=== PATIENT | female | born 1950 | race Caucasian/White ===

== ENCOUNTER → 2017-06-24 | Day surgery (SDC) | payer BC ==
--- NOTE | 2017-06-27 11:33 | OP ---
DATE OF OPERATION: 06/24/2017 PREOPERATIVE DIAGNOSIS: Right breast mass 11 o'clock to 12 o'clock 2 cm from the nipple and right breast mass 12 o'clock 2 cm from the nipple. POSTOPERATIVE DIAGNOSIS: Right breast mass 11 o'clock to 12 o'clock 2 cm from the nipple and right breast mass 12 o'clock 2 cm from the nipple. PROCEDURE: Right breast ultrasound-guided core biopsies with clip placement x2. ANESTHESIA: Local. ATTENDING SURGEON: Monae Bhatia MD ESTIMATED BLOOD LOSS: Minimal. COMPLICATIONS: None. DESCRIPTION OF PROCEDURE: The patient was made aware of the risks and benefits of the procedure and consented. She was placed in the supine position. Under sterile conditions with 1% lidocaine for local anesthesia, the right 11 o'clock to 12 o'clock mass 2 cm from the nipple was approached first. A small meghan was made in the skin. Using a 13-gauge suction biopsy, the biopsy was done with in inferolateral approach. Multiple cores were obtained under ultrasound guidance and submitted to Pathology. Likewise, under ultrasound guidance, a U-shaped clip was placed into the biopsy region. The 12 o'clock mass was then approached, again, under sterile conditions with 1% lidocaine for local anesthesia. The same meghan was used before was used, and a 13-gauge suction biopsy. The biopsy was placed in the proper position under ultrasound guidance. Multiple cores were obtained and then submitted to Pathology. Likewise, under ultrasound guidance, a bowtie clip was placed into the biopsy region well tolerated by patient. Steri-Strips and a sterile bandage was applied. We will contact her with the results. MONAE BHATIA M.D. [id number]
--- NOTE | 2017-06-28 11:24 | PATH ---
Surgical Pathology Report Patient Name: JUAN LEÓN [facility]. Rec. #: [id number] /Age/Gender: 1950 (Age: 66) / F Account: [id number] Location: [facility] RADIOLOGY U Taken: 06/24/2017 Received: 06/24/2017 Reported: 06/28/2017 Physicians: Tahmina Ann M.D. Specimen(s) Received A: RIGHT BREAST CORE BIOPSY 11:00 - 2CM FN B: RIGHT BREAST CORE BIOPSY 12:00, 2CM FN Clinical History Palpable mass Ultrasound findings: Highly suspicious/malignant Final Diagnosis A. BREAST, RIGHT, 11:00, 2 CMFN, CORE BIOPSY: INVASIVE DUCTAL CARCINOMA, MODERATELY DIFFERENTIATED, WITH ASSOCIATED MICROCALCIFICATIONS, MEASURING 0.9 CM IN THIS MATERIAL. B. BREAST, RIGHT, 12:00, 2 CMFN, CORE BIOPSY: INVASIVE DUCTAL CARCINOMA, WELL DIFFERENTIATED, MEASURING 0.8 CM IN THIS MATERIAL. DUCTAL CARCINOMA IN SITU (DCIS), INTERMEDIATE NUCLEAR GRADE, CRIBRIFORM TYPE. MICROCALCIFICATIONS PRESENT WITHIN IN SITU AND INVASIVE CARCINOMA. Comment: Breast prognostic markers are pending and will be reported as an addendum. Electronically Signed Shima Canut M.D. Addendum Reported: 06/30/2017 Addendum Diagnosis Part A, Breast, Right, 11:00: Results of Estrogen Receptor (ER) and Progesterone Receptor (ID) studies performed on block "1" at [facility] are as follows: ER (clone [id number] mouse monoclonal antibody by [employer]): 99% nuclear staining with strong intensity (Positive). ID (clone16 mouse monoclonal antibody by [employer]): 95% nuclear staining with strong intensity (Positive). Results of Her2 (IHC) & Ki-67 studies performed on block " " at [place], [place] ([id number]) are as follows: Her2 IHC (EP3 from [employer], formerly known as [id number], using Sutton Polymer Refine detection kit): 0 (Negative) Ki-67: ~10% (Low proliferative index) Part B, Breast, Right, 12:00 Results of Estrogen Receptor (ER) and Progesterone Receptor (ID) studies performed on block "1" at [facility] are as follows: ER (clone 6F11 mouse monoclonal antibody by [employer]): 99% nuclear staining with strong intensity (Positive). ID (clone16 mouse monoclonal antibody by [employer]): 95% nuclear staining with strong intensity (Positive). Results of Her2 (IHC) & Ki-67 studies performed on block " " at [place], [place] ([id number]) are as follows: Her2 IHC (EP3 from [employer], formerly known as [id number], using Sutton Polymer Refine detection kit): 0 (Negative) Ki-67: ~3% (Low proliferative index) Positive and negative controls (internal if applicable) show appropriate results. Formalin fixation time (approximately 75 hrs) exceeds current ASCO/CAP recommendations for ER, ID & Her2 testing (6-72 hrs). Negative results must be interpreted with caution as false negatives may occur. Cold ischemic time is within recommended guidelines. Shima Cantu M.D. Gross Description A. Received in formalin labeled "right breast biopsy 11:00, 2 cmfn," are 8 [place]-yellow, cylindrical portions of fibroadipose tissue ranging from 0.3-2.0 cm in length and averaging 0.1 cm diameter. The specimens are submitted in toto in one cassette. B. Received in formalin labeled "right breast biopsy 12:00, 2 cmfn," are 7 [place]-yellow, cylindrical portions of fibroadipose tissue ranging from 0.4-1.9 cm in length and averaging 0.1 cm in diameter. The specimens are submitted in toto in one cassette. Total formalin fixation time: Between 75-82 hours 06/27/201706/27/2017
== END | disposition home or self-care (01) ==
LOC: FRADUS-SUR 12:34
PROVIDERS: ATTEND Surgery Surgical Oncology
PROC: 0HBT3ZX Excision of Right Breast, Percutaneous Approach, Diagnostic (ICD-10-PCS; principal; 2017-06-24)
DX: C50.411 Malignant neoplasm of upper-outer quadrant of right female breast (principal); N63.11 Unspecified lump in the right breast, upper outer quadrant
CPT/HCPCS: 19083; 19084; 87899; A4648

== ENCOUNTER 2017-07-12 09:35 | Inpatient (IN) | payer BC ==
[2017-07-05 09:55] VITALS: BMI 16.7
--- NOTE | 2017-07-08 14:58 | HP ---
Admitting History and Physical - Primary Care Physician PCP: Monae Bhatia - Admission Chief Complaint: right breast cancer History of Present Illness: 66 yo female noted to have a right breast mass on self exam for years. Patient underwent a mammo and US which revealed right breast masses x 2. Patient underwent an US guided core bx of the 11 and 12 oclock position which were both pos for invasive ductal ca ER and DC positive. MRI was c/w known cancer without evidence of contralateral dz. Patient presenting for a right mastectomy without reconstruction and snbx with lymph, poss andx. History Source: Patient Limitations to Obtaining History: No Limitations - Past Medical History Additional Past Medical History: Thalassemia trait cervical dysplasia - Past Surgical History Past Surgical History: Yes: Breast Biopsy Additional Past Surgical History: right breast WE (90s sec to atypia) abdominal surgery sec to ectopic - Smoking History Smoking history: Former smoker Have you smoked in the past 12 months: No If you are a former smoker, when did you quit?: 1994 - Alcohol/Substance Use Hx Alcohol Use: No Home Medications - Allergies Allergies/Adverse Reactions: Allergies Allergy/AdvReac Type Severity Reaction Status Date / Time cetirizine [From Zyrtec-D] Allergy Severe Verified 07/05/17 09:45 pseudoephedrine Allergy Severe SEVERE Verified 07/05/17 09:45 [From Zyrtec-D] NOSE BLEED - Home Medications Home Medications: Ambulatory Orders Acetaminophen [Tylenol] 650 mg PO ASDIR PRN 07/05/17 Aspirin [ASA -] 325 mg PO DAILY PRN 07/05/17 Ibuprofen [Advil -] 400 mg PO ASDIR PRN 07/05/17 Multivitamins [Tab-A-Vit -] 1 tab PO DAILY 07/05/17 Naphazoline HCl/Pheniramine [Opcon-A Eye Drops] 15 ml OP ASDIR PRN 07/05/17 Family Disease History - Family Disease History Other Family History: maternal aunt-breast cancer Review of Systems - Review of Systems Musculoskeletal: reports: Muscle Pain, Other (neck and back pain) Psychiatric: reports: Anxiety Physical Examination Constitutional: Yes: Well Nourished Cardiovascular: Yes: WNL Respiratory: Yes: WNL Breast(s): Yes: Other (Right UOQ mass approx 4 cm that is not fixated. No other suspicious masses or adenopathy noted bilaterally) Problem List - Problems (1) Breast cancer, right Code(s): C50.911 - MALIGNANT NEOPLASM OF UNSP SITE OF RIGHT FEMALE BREAST Qualifiers: Breast location: upper outer quadrant of breast Estrogen receptor status: positive Patient sex: female Qualified Code(s): C50.411 - Malignant neoplasm of upper-outer quadrant of right female breast; Z17.0 - Estrogen receptor positive status [ER+]; Z17.0 - Estrogen receptor positive status [ER+] Assessment/Plan right breast mastectomy, snbx, poss ANDx and lympho
[2017-07-12] MEDS ORDERED: oxyCODONE HCL 5 MG TABLET PO PRN (12:24)
[2017-07-12] MEDS ORDERED: ONDANSETRON 4 MG/2 ML VIAL IVPUSH PRN (12:24)
[2017-07-12] MEDS ORDERED: ceFAZolin SODIUM 1 GM VIAL ONE (15:11)
--- NOTE | 2017-07-12 15:54 | OP ---
DATE OF OPERATION: 07/12/2017 PREOPERATIVE DIAGNOSIS: Right breast cancer, multicentric. POSTOPERATIVE DIAGNOSIS: Right breast cancer, multicentric. PROCEDURE: Right total mastectomy with sentinel node biopsy. ANESTHESIA: General intubated. ATTENDING SURGEON: Monae Bhatia MD GRAIN SPOUTER: TIM Perez ESTIMATED BLOOD LOSS: Minimal. COMPLICATIONS: None. DESCRIPTION OF PROCEDURE: Patient was made aware of the risks and benefits of the procedure and consented. She was placed in a supine position. Preoperatively, the patient went to the Nuclear Medicine where radioactive isotope tracer was placed into the right breast. After general anesthesia was induced, the patient was intubated. Next, 2.5 mL of 1% isosulfan blue were locally infiltrated into the peritumoral tissues. The operative site was prepped and draped in the usual sterile fashion. A curvilinear incision was made in the right axilla. Using blunt and sharp dissection, tissues were dissected down revealing 4 blue and/or hot lymph nodes which were submitted for frozen section. This pathology reported as no evidence of metastasis. The breast was then approached. An elliptical incision was made around the nipple, and skin overlying the breast cancers. Using electrocautery, skin flaps were made superior to the clavicle, medial to the sternum, lateral to the latissimus dorsi, and inferior to the inframammary fold. Using electrocautery, the breast tissue was taken off the pectoralis muscle and extended lateral to the latissimus dorsi. The breast specimen was then submitted with a short suture superior, long suture lateral. Specimen radiograph confirmed the presence of the 2 clips. Breast was then submitted to Pathology. The wound was copiously irrigated with normal saline. Hemostasis maintained by electrocautery. Through inferior stab wounds, two Timothy-Petersen drains were placed and sutured to the skin with 2-0 nylon. Skin was then closed with deep 2-0 Vicryl, followed by running, subdermal 3-0 Vicryl, followed by running subcuticular 4-0 Monocryl. Steri-Strips, sterile dressings, and a compression bra were then applied. The patient, having tolerated the procedure well, was taken to the recovery room in excellent condition. Tahmina [id number]
[2017-07-12] MEDS: CEFAZOLIN 1 GM/D5W 1 GM/50 ML BAG IVPB SCH ×2 (16:24→21:33)
[2017-07-12] MEDS: DEXTROSE 5%-0.45% SALINE 1,000 ML IV SCH (16:24)
[2017-07-12] MEDS ORDERED: ZOLPIDEM TARTRATE 5 MG TABLET PO PRN (22:00)
[2017-07-13] MEDS: ACETAMINOPHEN 325 MG TABLET (FP) PO PRN (00:46)
[2017-07-13] MEDS: CEFAZOLIN 1 GM/D5W 1 GM/50 ML BAG IVPB SCH ×4 (03:07→22:30)
[2017-07-13] MEDS ORDERED: PT OWN MED DRAWER 7, Y5N ONE (08:50)
[2017-07-13 08:55] LABS: HEMATOCRIT 30.1 % (32.4-45.2); HEMOGLOBIN 9.4 GM/dl (10.7-15.3); MCH 21.4 pg (25.7-33.7); MCHC 31.3 g/dl (32.0-36.0); MEAN CELL VOLUME 68.2 fl (80-96); MEAN PLT VOLUME 8.6 fl (7.5-11.1); PLATELET COUNT 254 K/MM3 (134-434); RBC 4.42 M/mm3 (3.60-5.2); RDW 13.6 % (11.6-15.6); WHITE BLOOD COUNT 8.4 K/mm3 (4.0-10.8)
[2017-07-13 09:02] LABS: ADD RBC MORPHOLOGY YES
[2017-07-13] MEDS: HEPARIN NA (PORCINE) 5,000 UNITS/ML 1ML VIAL SQ SCH ×2 (09:45→22:30)
--- NOTE | 2017-07-13 10:00 | PN ---
Progress Note (short form) - Note Progress Note: ANESTHESIOLOGY POST-OP CHECK 66F s/p right mastectomy under general anesthesia and PNB, POD #1. No acute complaints. Pain 0/10 and tolerable. Denies N/V currently. Ambulating and voiding. Vital Signs Temperature 98.4 F 07/13/17 06:00 Pulse Rate 84 07/13/17 06:00 Respiratory Rate 18 07/13/17 06:00 Blood Pressure 102/57 07/13/17 06:00 O2 Sat by Pulse Oximetry (%) 96 07/13/17 07:56 Active Medications Acetaminophen (Tylenol -) 650 mg PO Q4H PRN PRN Reason: FEVER Last Admin: 07/13/17 00:46 Dose: 650 mg Heparin Sodium (Porcine) (Heparin -) 5,000 unit SQ BID TRISH Last Admin: 07/13/17 09:45 Dose: 5,000 unit Cefazolin Sodium (Ancef 1 Gm Premixed Ivpb -) 1 gm in 50 mls @ 100 mls/hr IVPB Q6H-IV TRISH Stop: 07/19/17 14:59 Last Admin: 07/13/17 09:45 Dose: 100 mls/hr Dextrose/Sodium Chloride (D5-1/2ns -) 1,000 mls @ 100 mls/hr IV ASDIR TRISH Last Admin: 07/12/17 16:24 Dose: Not Given Ondansetron HCl (Zofran Injection) 4 mg IVPUSH Q6H PRN PRN Reason: NAUSEA AND/OR VOMITING Oxycodone HCl (Roxicodone -) 5 mg PO Q4H PRN PRN Reason: PAIN LEVEL 4 - 6 Zolpidem Tartrate (Ambien -) 5 mg PO HS PRN PRN Reason: Insomnia Gen: Awake, alert No apparent anesthesia complications. Pain controlled. Continue management as per primary team.
--- NOTE | 2017-07-13 10:23 | PN ---
Progress Note, Physician Chief Complaint: Right breast cancer S/P right total mastectomy sentenel node biopsy POD #1 History of Present Illness: patient is eating minimal pain, OOb eating full ROM of right upper extremity - Current Medication List Current Medications: Active Medications Acetaminophen (Tylenol -) 650 mg PO Q4H PRN PRN Reason: FEVER Last Admin: 07/13/17 00:46 Dose: 650 mg Heparin Sodium (Porcine) (Heparin -) 5,000 unit SQ BID TRISH Last Admin: 07/13/17 09:45 Dose: 5,000 unit Cefazolin Sodium (Ancef 1 Gm Premixed Ivpb -) 1 gm in 50 mls @ 100 mls/hr IVPB Q6H-IV RTISH Stop: 07/19/17 14:59 Last Admin: 07/13/17 09:45 Dose: 100 mls/hr Dextrose/Sodium Chloride (D5-1/2ns -) 1,000 mls @ 100 mls/hr IV ASDIR TRISH Last Admin: 07/12/17 16:24 Dose: Not Given Ondansetron HCl (Zofran Injection) 4 mg IVPUSH Q6H PRN PRN Reason: NAUSEA AND/OR VOMITING Oxycodone HCl (Roxicodone -) 5 mg PO Q4H PRN PRN Reason: PAIN LEVEL 4 - 6 Zolpidem Tartrate (Ambien -) 5 mg PO HS PRN PRN Reason: Insomnia - Objective Vital Signs: Vital Signs Temperature 98.4 F 07/13/17 06:00 Pulse Rate 84 07/13/17 06:00 Respiratory Rate 18 07/13/17 06:00 Blood Pressure 102/57 07/13/17 06:00 O2 Sat by Pulse Oximetry (%) 96 07/13/17 07:56 Constitutional: Yes: No Distress Breast(s): Yes: Other (Tight flap viable no echymosis no infection incision intact with steristrips, brooke drain functioning dressing changed) Labs: CBC, BMP 07/13/17 07:53 Problem List - Problems (1) Breast cancer, right Code(s): C50.911 - MALIGNANT NEOPLASM OF UNSP SITE OF RIGHT FEMALE BREAST Qualifiers: Breast location: upper outer quadrant of breast Estrogen receptor status: positive Patient sex: female Qualified Code(s): C50.411 - Malignant neoplasm of upper-outer quadrant of right female breast; Z17.0 - Estrogen receptor positive status [ER+]; Z17.0 - Estrogen receptor positive status [ER+] Assessment/Plan continue IV antibiotics spirometry plan for discharge tomorrow
[2017-07-13 10:57] LABS: ANISOCYTOSIS 1+; OVALOCYTE FEW
[2017-07-13] MEDS: DEXTROSE 5%-0.45% SALINE 1,000 ML IV SCH (15:22)
[2017-07-14] MEDS: CEFAZOLIN 1 GM/D5W 1 GM/50 ML BAG IVPB SCH (02:23)
[2017-07-14 06:28] VITALS: BP 100/61; PULSE 89; TEMP 97.6
[2017-07-14] MEDS: ACETAMINOPHEN 325 MG TABLET (FP) PO PRN (08:10)
--- NOTE | 2017-07-14 09:50 | PN ---
Progress Note, Physician Chief Complaint: S/P right mastectomy with snbx POD #2 History of Present Illness: Patient seen at the bedside and reports no pain. She is tolerating po well. - Current Medication List Current Medications: Active Medications Acetaminophen (Tylenol -) 650 mg PO Q4H PRN PRN Reason: FEVER Last Admin: 07/14/17 08:10 Dose: 650 mg Heparin Sodium (Porcine) (Heparin -) 5,000 unit SQ BID TRISH Last Admin: 07/13/17 22:30 Dose: 5,000 unit Cefazolin Sodium (Ancef 1 Gm Premixed Ivpb -) 1 gm in 50 mls @ 100 mls/hr IVPB Q6H-IV TRISH Stop: 07/19/17 14:59 Last Admin: 07/14/17 02:23 Dose: 100 mls/hr Dextrose/Sodium Chloride (D5-1/2ns -) 1,000 mls @ 100 mls/hr IV ASDIR TRISH Last Admin: 07/13/17 15:22 Dose: Not Given Ondansetron HCl (Zofran Injection) 4 mg IVPUSH Q6H PRN PRN Reason: NAUSEA AND/OR VOMITING Oxycodone HCl (Roxicodone -) 5 mg PO Q4H PRN PRN Reason: PAIN LEVEL 4 - 6 Zolpidem Tartrate (Ambien -) 5 mg PO HS PRN PRN Reason: Insomnia - Objective Vital Signs: Vital Signs Temperature 97.6 F 07/14/17 06:00 Pulse Rate 89 07/14/17 06:00 Respiratory Rate 18 07/14/17 08:50 Blood Pressure 100/61 07/14/17 06:00 O2 Sat by Pulse Oximetry (%) 95 07/14/17 08:50 Constitutional: Yes: Well Nourished, Calm Breast(s): Yes: Other (Right chest with steristrips intact. No swelling, discharge or erythema noted. JPs x 2 with serosanginous discharge.) Labs: CBC, BMP 07/13/17 07:53 Problem List - Problems (1) Breast cancer, right Code(s): C50.911 - MALIGNANT NEOPLASM OF UNSP SITE OF RIGHT FEMALE BREAST Qualifiers: Breast location: upper outer quadrant of breast Estrogen receptor status: positive Patient sex: female Qualified Code(s): C50.411 - Malignant neoplasm of upper-outer quadrant of right female breast; Z17.0 - Estrogen receptor positive status [ER+]; Z17.0 - Estrogen receptor positive status [ER+] Assessment/Plan Plan: Discharge today on axbx RTO next week for wound check. Teach RUTH monitoring.
[2017-07-14] MEDS ORDERED: CEPHALEXIN MONOHYDRATE 500 MG CAPSULE (UD) PO SCH (10:00)
--- NOTE | 2017-07-18 16:09 | PATH ---
Surgical Pathology Report Patient Name: JUAN LEÓN Med. Rec. #: [id number] /Age/Gender: 1950 (Age: 66) / F Account: [id number] [facility] Taken: 07/12/2017 Received: 07/12/2017 Reported: 07/18/2017 Physicians: Monae Bhatia M.D. Specimen(s) Received A: RIGHT AXILLARY SENTINEL NODES. FS B: RIGHT BREAST MASTECTOMY Clinical History Right breast cancer Intraoperative Consult Diagnosis Right axillary sentinel nodes, frozen section: Four negative lymph nodes. Zeferino Paz M.D., 07/12/17 Final Diagnosis A. lymph node, right axillary sentinel, excision (FS): Metastatic carcinoma involving one of four lymph nodes (1/4); the focus of metastatic carcinoma measures 2 mm in greatest dimension (micrometastasis). (See note) No extranodal extension is identified. Note: The focus of micrometastasis is not identifiable on frozen section slides. Cytokeratin (AE1/3) immunostains were performed on the lymph nodes and confirm the focus of micrometastasis in one lymph node. B. breast, right, total mastectomy: Two foci of invasive ductal carcinoma, moderately differentiated with lobular GROWTH features (tubule score: 2/3, nuclear grade: 2/3, mitotic score: 2/3; total Christine score: 6/9), measuring 1.9 cm and 1.6 cm in greatest dimension, microscopically. The Two foci of invasive carcinoma are adjacent to each other and are present in the upper outer quadrant (UOQ). Ductal carcinoma in situ (DCIS), cribriform and micropapillary type, intermediate nuclear grade WITH ASSOCIATED CALCIFICATIONS, is present admixed with THE foci of invasive carcinoma As a minor component. invasive carcinoma AND DCIS ARE FOCALLY close to (< 1 mm) the anterior soft tissue margin. SKIN AND NIPPLE ARE UNINVOLVED BY CARCINOMA. FOCAL LYMPHOVASCULAR INVASION IS IDENTIFIED. REMAINING BREAST TISSUE SHOWS LOBULAR CARCINOMA IN SITU (LCIS), CLASSICAL TYPE, FOCAL ATYPICAL DUCTAL HYPERPLASIA (ADH) AND PROLIFERATIVE FIBROCYSTIC CHANGES WITH ASSOCIATED CALCIFICATIONS. (SEE NOTE) PRIOR BIOPSY SITE CHANGES ARE IDENTIFIED. PATHOLOGIC STAGE (PTNM): pT1c (m) pN1mi. SEE ALSO INVASIVE CARCINOMA CASE SUMMARY BELOW. Note: E-Cadherin immunostains (performed at [facility]) demonstrate strong membranous positivity in the focus of invasive carcinoma with lobular growth features, supporting ductal phenotype. The foci of LCIS are negative for E-Cadherin which supports lobular phenotype. Comments Breast Invasive Carcinoma: Surgical Pathology Case Summary (Based on AJCC TNM 8 th edition) Procedure _X_ Total mastectomy Specimen Laterality _X_ Right Tumor Size _X_ Greatest dimension of largest invasive focus >1 mm (specify exact measurement) (millimeters): 19 mm Histologic Type _X_ Invasive carcinoma with lobular features Histologic Grade (Christine Histologic Score) Glandular (Acinar)/Tubular Differentiation _X_ Score 2 (10% to 75% of tumor area forming glandular/tubular structures) Nuclear Pleomorphism _X_ Score 2 Mitotic Rate _X_ Score 2 Overall Grade _X_ Grade 2 (scores of 6 or 7) Tumor Focality _X_ Multiple foci of invasive carcinoma Number of foci: 2 Sizes of individual foci: 1.9 cm, 1.6 cm Ductal Carcinoma In Situ (DCIS) _X_ DCIS is present in specimen _X_ Negative for extensive intraductal component (EIC) Margins Invasive Carcinoma Margins _X_ Uninvolved by invasive carcinoma Distance from closest margin (millimeters): < 1 mm Closest margin: anterior soft tissue DCIS Margins _X_ Uninvolved by DCIS Distance from closest margin (millimeters): < 1 mm Closest margin: anterior soft tissue Regional Lymph Nodes Number of Lymph Nodes with Macrometastases (>2 mm): 0 Number of Lymph Nodes with Micrometastases (>0.2 mm to 2 mm and/or >200 cells): 1 Number of Lymph Nodes with Isolated Tumor Cells (=0.2 mm and =200 cells):0 Size of Largest Metastatic Deposit (millimeters): 2 mm Extranodal Extension: _X_ Not identified Number of Lymph Nodes Examined: Number of [place] Nodes Examined : 4 Treatment Effect _X_ No known presurgical therapy Lymphovascular Invasion _X_ Present Pathologic Stage Classification (pTNM, AJCC 8th Edition) TNM Descriptors _X_ m (multiple foci of invasive carcinoma) Primary Tumor (Invasive Carcinoma) (pT) _X_ pT1c (m): Tumor >10 mm but =20 mm in greatest dimension Regional Lymph Nodes (pN) Category (pN) _X_ pN1mi (sn): Micrometastases (approximately 200 cells, larger than 0.2 mm, but none larger than 2.0 mm Biomarker Studies Results of ER and [place] studies performed on prior biopsy (D18 146, specimens A&B) at [facility] are as follows: ER (clone [id number] mouse monoclonal antibody by [employer]): 99 % nuclear staining with strong intensity (Positive). [place] (clone16 mouse monoclonal antibody by [employer]): 95 % nuclear staining with strong intensity (Positive). Results of Her2 (IHC) & Ki-67 studies performed on prior biopsy ([id number], specimens A&B) at [place], [place] ([id number]) are as follows: Her2 IHC (EP3 from [employer], formerly known as [id number], using [employer] Polymer Refine detection kit): 0 Ki67: 10% (A), ~ 3% (B). Note: Ki67 studies are also being performed on the current specimen. Electronically Signed Sarah Paz M.D. Gross Description A. Received fresh for frozen section labeled "right axillary sentinel nodes," are 4 lymph nodes with attached fatty tissue ranging from 0.4-0.8 cm in greatest dimension. A frozen section is performed on the lymph nodes. The frozen section residue is entirely submitted in 2 cassettes as follows: 1-two whole lymph nodes; 2-two whole lymph nodes. B. Received in formalin, labeled "right breast mastectomy," is a 158 gram, 11.5 x 10.5 x 3.2 cm. right mastectomy specimen with a short suture marking the superior aspect and a long suture marking the lateral aspect of the specimen, per the surgeon. The anterior surface displays a 12.0 x 6.5 cm [place], elliptical portion of skin with a 1.1 cm in diameter nipple. The deep margin is inked black and the anterior soft tissue margin is inked blue. The specimen is serially sectioned from lateral to medial. Sectioning reveals two ill-defined masses in the upper outer quadrant (UOQ): one mass (#1) measures 1.8 x 1.5 x 1.4 cm with the second mass adjacent to it at 0.6 cm from mass #1 measuring 2.0 x 1.6 x 1.5 cm (mass #2). Mass #2 is at 0.4 cm from the deep margin and focally abuts the anterior soft tissue margin. There is an additional ill-defined focus of hemorrhage in the upper inner quadrant (UIQ). Block Placer sections are submitted in 20 cassettes as follows: 1-serially sectioned nipple; 2-subareolar shave; 3-6- mass #1 with deep margin; 7-9- mass # 2 with deep & anterior soft tissue margin; 10-mass #2 with skin; 11-mass # 2 abutting anterior soft tissue margin; 08-72-unznpagbice focus in UIQ; 14-15-lower outer quadrant; 16-17-upper inner quadrant; 18-19-lower inner quadrant; 20-skin and additional anterior soft tissue margin. Time to formalin fixation: 17 minutes Total formalin fixation time: Approximately 28 hours. 07/13/201707/13/2017
== END 2017-07-14 11:01 | disposition home or self-care (01) | DRG 580 ==
LOC: FM/S 09:35
PROVIDERS: ADMIT Surgery Surgical Oncology; ATTEND Surgery Surgical Oncology
PROC: 0HTT0ZZ Resection of Right Breast, Open Approach (ICD-10-PCS; principal; 2017-07-12 12:49)
PROC: 07B50ZX Excision of Right Axillary Lymphatic, Open Approach, Diagnostic (ICD-10-PCS; 2017-07-12 12:49)
DX: C50.811 Malignant neoplasm of overlapping sites of right female breast (principal); C77.3 Secondary and unspecified malignant neoplasm of axilla and upper limb lymph nodes; C50.411 Malignant neoplasm of upper-outer quadrant of right female breast; Z17.0 Estrogen receptor positive status [ER+]; D56.3 Thalassemia minor; Z87.891 Personal history of nicotine dependence
CPT/HCPCS: 36415; 78195-TC; 85027; 88307-TC; 88331-TC; 88341-TC; 94010; 94760; A9541; J1644